=== PATIENT | female | born 2000 | race Caucasian/White ===

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

== ENCOUNTER → 2020-06-13 | Outpatient (CLI) | payer OTHER ==
[2020-06-13 14:53] LABS: Basophils % (A) 1 %; Eosinophils # (A) 0.1 k/uL (0-0.7); Eosinophils % (A) 2 %; HCT 38.1 % (34.0-46.0); Lymphocytes # (A) 1.5 k/uL (1.0-4.8); Lymphocytes % (A) 32 %; MCH 29.9 pg (25.0-35.0); MCHC 34.2 g/dL (31.0-37.0); MCV 87.2 fL (80.0-100.0); Mean Platelet Volume 7.3; Monocytes # (A) 0.2 k/uL (0-1.0); Monocytes % (A) 4 %; Neutrophils # (A) 2.9 k/uL (1.3-7.7); Neutrophils % (A) 60 %; Platelet Count 223 k/uL (150-450); RBC 4.37 m/uL (3.80-5.40); RDW 11.7 % (11.5-15.5); WBC 4.8 k/uL (4.0-11.0)
[2020-06-13 21:17] LABS: Albumin 4.6 g/dL (3.80-4.90); Albumin/Globulin Ratio 2.19 (1.60-3.17); Anion Gap 7.8 mmol/L (4.00-12.00); BUN/Creat Ratio 13.75 Ratio (12.00-20.00); Calcium 9.3 mg/dL (8.7-10.3); Carbon Dioxide 26.2 mmol/L (21.6-31.8); Chol/HDL Ratio 3.14; Globulin 2.1 g/dL (1.6-3.3); LDL Cholesterol,Calculated 79.2 mg/dL (0.0-131.0); Non-African American GFR(CKD) 106.1 (60.0-200.0); Potassium 4.2 mmol/L (3.5-5.5); Total Bilirubin 0.3 mg/dL (0.2-1.2); Total Protein 6.7 g/dL (6.2-8.2); VLDL Calculation 10.8 mg/dL (5.00-40.00)
[2020-06-13 21:56] LABS: Hepatitis A Antibody IgM Non-Reactive (Non-Reactive); Hepatitis B Core IgM Non-Reactive (Non-Reactive); Hepatitis B Surface Antigen Non-Reactive (Non-Reactive); Hepatitis C IgG Antibody Non-Reactive (Non-Reactive)
[2020-06-13 22:29] LABS: HIV 2 AB Non-Reactive (Non-Reactive); HIV AB P24 Non-Reactive (Non-Reactive); HIV P24 AG Non-Reactive (Non-Reactive)
== END | disposition home or self-care (01) ==
LOC: LABWHC1 13:48
PROVIDERS: ATTEND Physician Assistant
DX: Z00.00 Encounter for general adult medical examination without abnormal findings (principal); R42 Dizziness and giddiness
CPT/HCPCS: 36415; 80053; 80061; 80074; 82306; 83036; 84443; 85025; 87390; 93005

== ENCOUNTER → 2020-07-25 | Outpatient (CLI) | payer OTHER ==
[2020-07-26 01:41] LABS: Hepatitis A Ab, Total Reactive (Non-Reactive); Hepatitis B Surface AB- Quant 3.5 mIU/mL; Hepatitis B Surface Antibody Non-Reactive (Non-Reactive)
== END | disposition home or self-care (01) ==
LOC: LABWHC1 11:11
PROVIDERS: ATTEND Physician Assistant
DX: Z00.00 Encounter for general adult medical examination without abnormal findings (principal)
CPT/HCPCS: 36415; 86704; 86706; 86708

== ENCOUNTER 2020-09-10 | Emergency (ER) | payer OTHER ==
--- NOTE | 2020-09-10 23:08 | ED ---
Skin/Abscess/FB HPI - General Chief complaint: Skin/Abscess/Foreign Body Stated complaint: Poss bug bites Time Seen by Provider: 09/10/20 22:43 Source: patient Mode of arrival: ambulatory Limitations: no limitations - History of Present Illness Initial comments: Patient is a 20-year-old female presenting to the emergency Department with complaints of a rash. Patient states her boyfriend was here yesterday and was diagnosed with scabies. Patient states she noticed a few bumps starting today on her right forearm and the back of her neck and wants treatment for scabies as well. She denies any fevers or chills, no nausea or vomiting. She has no other complaints. - Related Data Home Medications Medication Instructions Recorded Confirmed Melatonin 3 mg PO HS PRN 10/04/15 02/05/19 Cholecalciferol [Vitamin D3] 1,000 unit PO DAILY 06/25/17 02/05/19 QUEtiapine [SEROquel] 25 mg PO HS 06/25/17 02/05/19 Sertraline [Zoloft] 100 mg PO DAILY 06/25/17 02/05/19 Previous Rx's Medication Instructions Recorded Famotidine [Pepcid] 20 mg PO DAILY #3 tablet 02/05/19 predniSONE 50 mg PO DAILY #3 tab 02/05/19 Permethrin 5% Cream [Elimite] 1 applic TOPICAL ONCE #60 gram 09/10/20 Allergies Allergy/AdvReac Type Severity Reaction Status Date / Time No Known Allergies Allergy Verified 09/10/20 21:35 Review of Systems ROS Statement: Those systems with pertinent positive or pertinent negative responses have been documented in the HPI. ROS Other: All systems not noted in ROS Statement are negative. Past Medical History Past Medical History: No Reported History History of Any Multi-Drug Resistant Organisms: None Reported Past Surgical History: No Surgical Hx Reported Past Psychological History: ADD/ADHD, Anxiety, Depression Smoking Status: Never smoker Past Alcohol Use History: None Reported Past Drug Use History: None Reported General Exam - General Exam Comments Initial Comments: GENERAL: Patient is well-developed and well-nourished. Patient is nontoxic and in no acute distress. HEAD: Atraumatic, normocephalic. EYES: Pupils equal round and reactive to light, extraocular movements intact, sclera anicteric, conjunctiva are normal. Eyelids were unremarkable. ENT: TMs normal, nares patent, oropharynx clear without exudates. Moist mucous m embranes. NECK: Normal range of motion, supple without lymphadenopathy or JVD. LUNGS: Unlabored respirations. Breath sounds clear to auscultation bilaterally and equal. No wheezes rales or rhonchi. HEART: Regular rate and rhythm without murmurs, rubs or gallops. ABDOMEN: Soft, nontender, normoactive bowel sounds. No guarding, no rebound. No masses appreciated. : Deferred MUSCULOSKELETAL: Normal extremities with adequate strength and normal range of motion, no pitting or edema. No clubbing or cyanosis. NEUROLOGICAL: Patient is alert and oriented x 3. Motor and sensory are also intact. Cranial nerves II through XII grossly intact. Symmetrical smile. Normal speech, normal gait. PSYCH: Normal mood, normal affect. SKIN: Warm, Dry, normal turgor, no rashes or lesions noted. Limitations: no limitations Course Vital Signs 09/10/20 09/10/20 21:30 23:10 Temperature 98.1 F Pulse Rate 100 70 Respiratory 18 16 Rate Blood Pressure 107/67 107/51 O2 Sat by Pulse 99 99 Oximetry Medical Decision Making - Medical Decision Making Patient is a 20-year-old female here requesting treatment for scabies as her boyfriend was treated yesterday for scabies and she noticed a few bumps today. On exam, I see no rash or bumps are consistent with scabies. Patient is really anxious about this, I will give her prescription for cream in case her rash gets worse or she noticed more symptoms. She can follow up with her regular doctor. Patient is stable for discharge and she is in agreement with this plan of care. Disposition Clinical Impression: Scabies exposure, Rash Disposition: HOME SELF-CARE Condition: Stable Instructions (If sedation given, give patient instructions): Normal Exam (ED) Additional Instructions: Please return to the Emergency Department if symptoms worsen or any other concerns. Use cream as prescribed. Follow-up with your primary care physician. Prescriptions: Permethrin 5% Cream [Elimite] 1 applic TOPICAL ONCE #60 gram Is patient prescribed a controlled substance at d/c from ED?: No Referrals: Aguilar Rodríguez PAC [Primary Care Provider] - 1-2 days
== END 2020-09-10 23:19 | disposition home or self-care (01) ==
CPT/HCPCS: 99282

== ENCOUNTER 2022-06-13 16:26 | Emergency (ER) | payer OTHER ==
[2022-06-13 16:35] VITALS: PULSE 68; RESP 18
[2022-06-13] MEDS ORDERED: SODIUM CHLORIDE 0.9% 1,000 ML IV STA (17:06)
--- NOTE | 2022-06-13 17:18 | ED ---
General Adult HPI - General Chief complaint: Syncope Stated complaint: Syncope Time Seen by Provider: 06/13/22 16:55 Source: patient, EMS, RN notes reviewed, old records reviewed Mode of arrival: EMS Limitations: no limitations - History of Present Illness Initial comments: Patient is a 22-year-old female who presents to the emergency department complai jacey of a syncopal episode while at work. This is the second syncopal episode in 2 years. Has had multiple near syncopal episodes as well. Uncertain what causes them. States that she was working while standing earlier, and felt like she was having tunnel vision with lightheadedness. Her coworker lowered her to the ground and she did not hit her head. She then passed out. Uncertain how long she was passed out for. States she came to on her own. When EMS arrived, they stated she had positive orthostatic vital signs. She states she ate a little bit this morning as well as drink a little bit. Did not previously have a significant workup. Presents for further evaluation of this time. No history of blood clots. Mild chest tightness which resolved. Denies shortness of breath. Denies abdominal pain, nausea, vomiting. Otherwise feels well. Presents emergency department for further evaluation at this time. Is not on blood thinners. Presents with her boyfriend who is also the room. - Related Data Home Medications Medication Instructions Recorded Confirmed Melatonin 3 mg PO HS PRN 10/04/15 02/05/19 Cholecalciferol [Vitamin D3] 1,000 unit PO DAILY 06/25/17 02/05/19 QUEtiapine [SEROquel] 25 mg PO HS 06/25/17 02/05/19 Sertraline [Zoloft] 100 mg PO DAILY 06/25/17 02/05/19 Previous Rx's Medication Instructions Recorded Famotidine [Pepcid] 20 mg PO DAILY #3 tablet 02/05/19 predniSONE 50 mg PO DAILY #3 tab 02/05/19 Permethrin 5% Cream [Elimite] 1 applic TOPICAL ONCE #60 gram 09/10/20 Allergies Allergy/AdvReac Type Severity Reaction Status Date / Time No Known Allergies Allergy Verified 09/10/20 21:35 Review of Systems ROS Statement: Those systems with pertinent positive or pertinent negative responses have been documented in the HPI. Review of Systems: CONST: Denies fever EYES: Denies blurry vision ENT: Denies nasal congestion C/V: Denies Chest pain RESP: Denies shortness of breath GI: Denies abdominal pain : Denies dysuria SKIN: Denies rash. MSK: Denies joint pain. NEURO: Denies headache ROS Other: All systems not noted in ROS Statement are negative. Past Medical History Past Medical History: No Reported History History of Any Multi-Drug Resistant Organisms: None Reported Past Surgical History: No Surgical Hx Reported Past Psychological History: ADD/ADHD, Anxiety, Depression Smoking Status: Never smoker Past Alcohol Use History: None Reported Past Drug Use History: None Reported General Exam - General Exam Comments Initial Comments: General: Appears in no acute distress. HEAD: Normal with no signs of head trauma. EYES: PERRLA, EOMI, conjunctiva normal, no discharge. Pupils are 3mm and equal bilaterally. ENT: Hearing grossly intact, normal oropharynx. RESPIRATORY: Clear breath sounds bilaterally. No wheezes, rales, or rhonchi. C/V: Regular rate and rhythm. S1 and S2 auscultated, no edema, peripheral pulses 2+ and intact throughout ABD: Abd is soft, nontender, nondistended EXT: Normal range of motion, no obvious deformity SKIN: No rashes or lesions observed on exposed skin. NEURO: Alert and oriented x 4. Cranial nerves II-XII intact. No focal sensory o r strength deficits. NIH is 0. GCS 15. Limitations: no limitations Course Vital Signs 06/13/22 06/13/22 16:31 17:40 Pulse Rate 68 Respiratory 18 18 Rate Blood Pressure 114/75 Blood Pressure 122/70 [Sitting] Blood Pressure 111/84 [Standing] Blood Pressure 120/71 [Supine] O2 Sat by Pulse 96 100 Oximetry Medical Decision Making - Medical Decision Making Was pt. sent in by a medical professional or institution (, PA, BELL TIER, urgent care, hospital, or long term...) When possible be specific @ -No Did you speak to anyone other than the patient for history (EMS, parent, family, police, friend...)? What history was obtained from this source @ -No Did you review nursing and triage notes (agree or disagree)? Why? @ -I reviewed and agree with nursing and triage notes Were old charts reviewed (outside hosp., previous admission, EMS record, old EKG, old radiological studies, urgent care reports/EKG's, long term records)? Report findings @ -Yes, i reveiwed old EKGs, charts. Differential Diagnosis (chest pain, altered mental status, abdominal pain women, abdominal pain men, vaginal bleeding, weakness, fever, dyspnea, syncope, headache, dizziness, GI bleed, back pain, seizure, CVA, palpatations, mental health)? @ -Differential Syncope: Valvular disease, hypertrophic cardiomyopathy, pulmonary embolism, tamponade, tachycardia, bradycardia, CO, hypovolemia, hemorrhage, dissection, anemia, intracranial hemorrhage, seizure, hypoglycemia, carbon monoxide poisoning, this is not meant to be an all-inclusive list. EKG interpreted by me (3pts min.). @ -As above X-rays interpreted by me (1pt min.). @ -Chest x-ray showed no acute cardio pulmonary process CT interpreted by me (1pt min.). @ -CT brain revealed no acute intracranial process, injury U/S interpreted by me (1pt. min.). @ -None done What testing was considered but not performed or refused? (CT, X-rays, U/S, labs )? Why? @ -None What meds were considered but not given or refused? Why? @ -None Did you discuss the management of the patient with other professionals (professionals i.e. , PA, BELL TIER, lab, RT, psych nurse, oncology social worker, baker doughnut, teacher, housing management officer, bottle caser)? Give summary @ -No Was smoking cessation discussed for >3mins.? @ -No Was critical care preformed (if so, how long)? @ -No Were there social determinants of health that impacted care today? How? (Homelessness, low income, unemployed, alcoholism, drug addiction, transportation, low edu. Level, literacy, decrease access to med. care, custodial, rehab)? @ -No Was there de-escalation of care discussed even if they declined (Discuss DNR or withdrawal of care, Hospice)? DNR status @ -No What co-morbidities impacted this encounter? (DM, HTN, Smoking, COPD, CAD, Cancer, CVA, ARF, Chemo, Hep., AIDS, mental health diagnosis, sleep apnea, morbid obesity)? @ -None Was patient admitted / discharged? Hospital course, mention meds given and route, prescriptions, significant lab abnormalities, going to OR and other pertinent info. @ - Based on the patient's presentation and physical exam, she expenses since the ep isode. Believe this is likely related to orthostatic hypotension as it was positive for EMS. She will receive an additional 1 L fluid bolus as she received 500 mL by EMS. However this is the second syncopal episode, with near syncopal episodes in between over the last few years. Never received a full workup. We did discuss her risk for potential causes such as brain anomaly or possible pulmonary embolism. She is low risk for these but we will obtain a CT brain as well as a screening d-dimer in addition to basic laboratory studies and EKG. She was in agreement this plan. Vital signs within acceptable limits. EKG was within normal limits. CT brain and chest x-ray showed no acute process or injury. Laboratory studies remarkable for d-dimer within normal limits. Patient is not . Remainder labs are within acceptable limits. On reevaluation following orthostatic vital signs are within normal limits. I discussed results with the patient. I believe it is safer to be discharged home. She is feeling improved. Ambulates without difficulty. She was in agreement this plan. Strict return precautions were discussed. I instructed the patient to follow up with their PCP in the next 1-3 days. I explained that the patient should return to the emergency department if they experience any worsening symptoms. Strict return precautions were discussed with the patient. The patient expressed understanding of these instructions. I answered all questions that the patient had. The patient was discharged home in good condition with their prescriptions and follow up information. Undiagnosed new problem with uncertain prognosis? @ -No Drug Therapy requiring intensive monitoring for toxicity (Heparin, Nitro, Insulin, Cardizem)? @ -No Were any procedures done? @ -No Diagnosis/symptom? @ -Syncope of unknown etiology Acute, or Chronic, or Acute on Chronic? @ -Acute Uncomplicated (without systemic symptoms) or Complicated (systemic symptoms)? @ -Uncomplicated Side effects of treatment? @ -No Exacerbation, Progression, or Severe Exacerbation? @ -No Poses a threat to life or bodily function? How? (Chest pain, USA, CO, pneumonia, PE, COPD, DKA, ARF, appy, cholecystitis, CVA, Diverticulitis, Homicidal, Suicidal, threat to staff... and all critical care pts) @ -No - Lab Data Result diagrams: 06/13/22 18:00 06/13/22 18:00 Lab Results 06/13/22 06/13/22 06/13/22 Range/Units 18:00 18:00 18:00 WBC 6.4 (3.8-10.6) k/uL RBC 4.19 (3.80-5.40) m/uL Hgb 12.0 (11.4-16.0) gm/dL Hct 36.0 (34.0-46.0) % MCV 86.0 (80.0-100.0) fL MCH 28.6 (25.0-35.0) pg MCHC 33.2 (31.0-37.0) g/dL RDW 12.9 (11.5-15.5) % Plt Count 235 (150-450) k/uL MPV 7.8 Neutrophils % 75 % Lymphocytes % 18 % Monocytes % 4 % Eosinophils % 1 % Basophils % 1 % Neutrophils # 4.8 (1.3-7.7) k/uL Lymphocytes # 1.2 (1.0-4.8) k/uL Monocytes # 0.2 (0-1.0) k/uL Eosinophils # 0.1 (0-0.7) k/uL Basophils # 0.0 (0-0.2) k/uL PT 10.5 (9.0-12.0) sec INR 1.0 (<1.2) APTT 21.1 L (22.0-30.0) sec D-Dimer 0.30 (<0.60) mg/L FEU Sodium 142 (137-145) mmol/L Potassium 4.1 (3.5-5.1) mmol/L Chloride 109 H (98-107) mmol/L Carbon Dioxide 26 (22-30) mmol/L Anion Gap 7 mmol/L BUN 13 (7-17) mg/dL Creatinine 0.59 (0.52-1.04) mg/dL Est GFR (CKD-EPI)AfAm >90 (>60 ml/min/1.73 sqM) Est GFR (CKD-EPI)NonAf >90 (>60 ml/min/1.73 sqM) Glucose 99 (74-99) mg/dL Calcium 8.8 (8.4-10.2) mg/dL Magnesium 2.3 (1.6-2.3) mg/dL Total Bilirubin 0.4 (0.2-1.3) mg/dL AST 18 (14-36) U/L ALT 16 (4-34) U/L Alkaline Phosphatase 42 (38-126) U/L Total Protein 7.5 (6.3-8.2) g/dL Albumin 4.6 (3.5-5.0) g/dL HCG, Qual Not Detected - EKG Data -: EKG Interpreted by Me EKG Comments: 12-lead Electrocardiogram Interpretation Note EKG was reviewed and interpreted by myself. 12-lead ECG performed at 1638 is interpreted by me as revealing normal sinus rhythm at a rate of 66 beats per minute. Holstein is normal. PA interval is 145 ms, QRS duration is 88 ms, QTc is 417 ms.. There were no ST or T wave abnormalities to suggest myocardial ischemia or injury. R wave progression across the precordium was satisfactory. By my interpretation this EKG is non-diagnostic for acute ischemia. No change when compared with EKG from 06/13/2020. Disposition Clinical Impression: Syncope Disposition: HOME SELF-CARE Condition: Good Instructions (If sedation given, give patient instructions): Syncope (ED) Is patient prescribed a controlled substance at d/c from ED?: No Referrals: None,Stated [Primary Care Provider] - 1-2 days Time of Disposition: 19:00
[2022-06-13 17:42] VITALS: BP 120/71
[2022-06-13 18:13] LABS: Basophils % (A) 1 %; Eosinophils # (A) 0.1 k/uL (0-0.7); Eosinophils % (A) 1 %; Lymphocytes # (A) 1.2 k/uL (1.0-4.8); Lymphocytes % (A) 18 %; MCH 28.6 pg (25.0-35.0); MCHC 33.2 g/dL (31.0-37.0); Mean Platelet Volume 7.8; Monocytes # (A) 0.2 k/uL (0-1.0); Monocytes % (A) 4 %; Neutrophils # (A) 4.8 k/uL (1.3-7.7); Neutrophils % (A) 75 %; Platelet Count 235 k/uL (150-450); RBC 4.19 m/uL (3.80-5.40); RDW 12.9 % (11.5-15.5); WBC 6.4 k/uL (3.8-10.6)
[2022-06-13 18:20] LABS: HCG,Qualitative Serum Not Detected
[2022-06-13 18:25] LABS: ALT 16 U/L (4-34); AST 18 U/L (14-36); African American GFR (CKD) >90 (>60 ml/min/1.73 sqM); Albumin 4.6 g/dL (3.5-5.0); Alkaline Phosphatase 42 U/L (38-126); Anion Gap 7 mmol/L; Blood Urea Nitrogen 13 mg/dL (7-17); Calcium 8.8 mg/dL (8.4-10.2); Carbon Dioxide 26 mmol/L (22-30); Chloride 109 mmol/L (98-107); Glucose 99 mg/dL (74-99); Magnesium 2.3 mg/dL (1.6-2.3); Non-African American GFR(CKD) >90 (>60 ml/min/1.73 sqM); Potassium 4.1 mmol/L (3.5-5.1); Sodium 142 mmol/L (137-145); Total Bilirubin 0.4 mg/dL (0.2-1.3); Total Protein 7.5 g/dL (6.3-8.2)
[2022-06-13 18:38] LABS: Partial Thromboplastin Time 21.1 sec (22.0-30.0); Prothrombin Time 10.5 sec (9.0-12.0)
--- NOTE | 2022-06-13 18:49 | CT ---
EXAMINATION TYPE: CT brain wo con DATE OF EXAM: 06/13/2022 COMPARISON: None HISTORY: Syncope. CT DLP: 1129.4 mGycm Automated exposure control for dose reduction was used. Images of the brain obtained with no contrast. Ventricles and sulci appear normal. There is no mass effect nor midline shift. No sign of intracrania l hemorrhage. Calvarium is intact. No evidence of cerebral edema. There is normal aeration of the mas toid sinuses. IMPRESSION: Normal unenhanced head CT scan.
--- NOTE | 2022-06-13 18:53 | XR ---
EXAMINATION TYPE: XR chest 2V DATE OF EXAM: 06/13/2022 COMPARISON: 06/25/2017 HISTORY: Syncope TECHNIQUE: FINDINGS: Heart is normal. Lungs are clear. Diaphragm is normal. Bony thorax appears normal there are chest leads. IMPRESSION: Normal chest. No change.
== END 2022-06-13 19:50 | disposition home or self-care (01) ==
LOC: EC 16:26
DX: R55 Syncope and collapse (principal); F32.A Depression, unspecified; F41.9 Anxiety disorder, unspecified
CPT/HCPCS: 36415; 70450; 71046; 80053; 83735; 84703; 85025; 85379; 85610; 85730; 93005; 96360; 99285

== ENCOUNTER 2022-08-16 23:09 | Emergency (ER) | payer OTHER ==
[2022-08-16 23:14] VITALS: RESP 16
--- NOTE | 2022-08-17 00:01 | ED ---
Allergic Reaction HPI - General Chief complaint: Allergic Reaction Stated complaint: allergic reaction Time Seen by Provider: 08/16/22 23:11 Source: patient, RN notes reviewed Mode of arrival: EMS Limitations: no limitations - History of Present Illness Initial Comments: Patient is a 22-year-old female presenting to the emergency room via EMS after having ALLERGIC reaction. She believes that she had an ALLERGIC reaction to raspberry flavored vodka however she had had several other alcoholic drinks and consumes food prior to the reaction as well. She denies regular alcohol consumption however does state that she was drinking yesterday as well and did not respond similarly to alcohol she drank yesterday. She reports that the reaction began after drinking a shot of breath raspberry vodka in which her hands the palmar aspects turned red and she began feeling facial/flushing and had redness develop throughout her entire face. EMS gave her 50 mg of Benadryl along with 125 mg of Solu-Medrol upon arrival her redness to the hands was resolved facial edema had improved and erythema is reducing. She denies any previous ALLERGIC reaction to any type of product including food, drink or medications. She denies any significant past medical history. - Related Data Home Medications Medication Instructions Recorded Confirmed Melatonin 3 mg PO HS PRN 10/04/15 02/05/19 Cholecalciferol [Vitamin D3] 1,000 unit PO DAILY 06/25/17 02/05/19 QUEtiapine [SEROquel] 25 mg PO HS 06/25/17 02/05/19 Sertraline [Zoloft] 100 mg PO DAILY 06/25/17 02/05/19 Previous Rx's Medication Instructions Recorded Famotidine [Pepcid] 20 mg PO DAILY #3 tablet 02/05/19 predniSONE 50 mg PO DAILY #3 tab 02/05/19 Permethrin 5% Cream [Elimite] 1 applic TOPICAL ONCE #60 gram 09/10/20 Allergies Allergy/AdvReac Type Severity Reaction Status Date / Time No Known Allergies Allergy Verified 09/10/20 21:35 Review of Systems ROS Statement: Those systems with pertinent positive or pertinent negative responses have been documented in the HPI. ROS Other: All systems not noted in ROS Statement are negative. Past Medical History Past Medical History: No Reported History History of Any Multi-Drug Resistant Organisms: None Reported Past Surgical History: No Surgical Hx Reported Past Psychological History: ADD/ADHD, Anxiety, Depression Smoking Status: Never smoker Past Alcohol Use History: Occasional Past Drug Use History: Marijuana General Exam - General Exam Comments Initial Comments: GENERAL: No acute distress, well developed, well nourished. Smells of alcohol. HEENT: Normocephalic, atraumatic. Pupils equal, round, reactive to light. Moist mucous membranes. Mild erythema in bilateral cheeks no overt hives. No facial edema, periorbital edema or pharyngeal injection/edema noted. LUNGS: No respiratory distress. Clear to auscultation, no adventitious sounds, no use of accessory muscles. HEART: Regular rate and rhythm without murmur, rub, or gallop. ABDOMEN: Normal bowel sounds. Soft, non-tender, non-distended. BACK: Normal inspection. EXTREMITIES: No edema. No tenderness. Moves all extremities. NEUROLOGIC: Alert & oriented x 3. CN II-XII grossly intact. PSYCHIATRIC: Normal affect and behavior. DERMATOLOGIC: Erythema near to bilateral cheeks without hives, otherwise skin intact no rash noted elsewhere. Limitations: no limitations Course Vital Signs 08/16/22 23:10 Temperature 98.2 F Pulse Rate 78 Respiratory 16 Rate Blood Pressure 110/82 O2 Sat by Pulse 99 Oximetry Medical Decision Making - Medical Decision Making Was pt. sent in by a medical professional or institution (JUDI Cruz, CLINICAL REHABILITATION LIAISON, urgent care, hospital, or long term...) When possible be specific @ -No Did you speak to anyone other than the patient for history (EMS, parent, family, police, friend...)? What history was obtained from this source @ -Boyfriend Did you review nursing and triage notes (agree or disagree)? Why? @ -I reviewed and agree with nursing and triage notes Were old charts reviewed (outside hosp., previous admission, EMS record, old EKG, old radiological studies, urgent care reports/EKG's, long term records)? Report findings @ -No old charts were reviewed Differential Diagnosis (chest pain, altered mental status, abdominal pain women, abdominal pain men, vaginal bleeding, weakness, fever, dyspnea, syncope, headache, dizziness, GI bleed, back pain, seizure, CVA, palpatations, mental health, musculoskeletal)? @ -not applicable EKG interpreted by me (3pts min.). @ -None done X-rays interpreted by me (1pt min.). @ -None done CT interpreted by me (1pt min.). @ -None done U/S interpreted by me (1pt. min.). @ -None done What testing was considered but not performed or refused? (CT, X-rays, U/S, labs)? Why? @ -None What meds were considered but not given or refused? Why? @ -None Did you discuss the management of the patient with other professionals (professionals i.e. , PA, CLINICAL REHABILITATION LIAISON, lab, RT, psych nurse, social work msw, metal stamping machine operator, teacher, chief sustainability officer, briefcase sewer)? Give summary @ -No Was smoking cessation discussed for >3mins.? @ -No Was critical care preformed (if so, how long)? @ -No Were there social determinants of health that impacted care today? How? (Homelessness, low income, unemployed, alcoholism, drug addiction, transportation, low edu. Level, literacy, decrease access to med. care, residential, rehab)? @ -No Was there de-escalation of care discussed even if they declined (Discuss DNR or withdrawal of care, Hospice)? DNR status @ -No What co-morbidities impacted this encounter? (DM, HTN, Smoking, COPD, CAD, Cancer, CVA, ARF, Chemo, Hep., AIDS, mental health diagnosis, sleep apnea, morbid obesity)? @ -None Was patient admitted / discharged? Hospital course, mention meds given and route, prescriptions, significant lab abnormalities, going to OR and other pertinent info. @ -22-year-old female presenting to the emergency room with complaints of facial swelling redness and redness to her hands after drinking raspberry vodka along with several other alcoholic drinks earlier today. She received 50 of Benadryl and 125 as a medical by EMS in symptoms however he began to resolve upon arrival to the emergency room. Mild facial rash without facial edema noted otherwise no abnormalities on exam. No indication for diagnostic imaging or laboratory studies. Will continue to monitor for one hour post administration of IV steroids to ensure no recurrence of facial edema and minimal plan for discharge home. Facial erythema completely resolved. No changes in airway status. Vital signs remained stable. No indication for further workup or monitoring. Questions and concerns answered. Return parameters to the emergency room discussed. Will discharge home in stable condition with avoidance of possible allergens which caused ALLERGIC reaction advising follow-up with primary care provider. Undiagnosed new problem with uncertain prognosis? @ -No Drug Therapy requiring intensive monitoring for toxicity (Heparin, Nitro, Insulin, Cardizem)? @ -No Were any procedures done? @ -No Diagnosis/symptom? @ -ALLERGIC reaction Acute, or Chronic, or Acute on Chronic? @ -Acute Uncomplicated (without systemic symptoms) or Complicated (systemic symptoms)? @ -Uncomplicated Side effects of treatment? @ -No Exacerbation, Progression, or Severe Exacerbation? @ -No Poses a threat to life or bodily function? How? (Chest pain, USA, MD, pneumonia, PE, COPD, DKA, ARF, appy, cholecystitis, CVA, Diverticulitis, Homicidal, Suicidal, threat to staff... and all critical care pts) @ -No Case discussed with Dr. Leal. Disposition Clinical Impression: Allergic reaction Disposition: HOME SELF-CARE Condition: Stable Instructions (If sedation given, give patient instructions): General Allergic Reaction (ED) Additional Instructions: May continue to use Benadryl as needed every 6 hours [id number] for rash/ALLERGY symptoms. Avoid products that may have caused symptoms. Please follow-up with your primary care provider. Please return to the Emergency Department if symptoms worsen or any other concerns. Is patient prescribed a controlled substance at d/c from ED?: No Referrals: None,Stated [Primary Care Provider] - 1-2 days Time of Disposition: 00:11
[2022-08-17 00:23] VITALS: BP 114/78; PULSE 76; TEMP 98.1
== END 2022-08-17 00:23 | disposition home or self-care (01) ==
LOC: EC 23:09
DX: T78.40XA Allergy, unspecified, initial encounter (principal); F32.A Depression, unspecified; F41.9 Anxiety disorder, unspecified; F12.90 Cannabis use, unspecified, uncomplicated; Z79.899 Other long term (current) drug therapy
CPT/HCPCS: 99284

== ENCOUNTER 2022-09-22 00:02 | Emergency (ER) | payer OTHER ==
[2022-09-22 00:10] VITALS: TEMP 97.9
[2022-09-22] MEDS ORDERED: SODIUM CHLORIDE 0.9% 1,000 ML IV ONE (00:15)
--- NOTE | 2022-09-22 00:38 | ED ---
General Adult HPI - General Chief complaint: Syncope Stated complaint: Syncope Time Seen by Provider: 09/22/22 00:09 Source: patient, EMS Mode of arrival: EMS Limitations: no limitations - History of Present Illness Initial comments: This is a 22-year-old female with no past medical history presents emergency department via EMS after syncopal episode. The patient stated that she was at work when she experienced flushing, lightheadedness and felt as if she was given a pass out so she lowered herself to the ground. The patient then was with a sonia ladd who witnessed that she did pass out momentarily. EMS was called and the patient had some minor lightheadedness transferring to the stretcher but otherwise stated that she was back to her baseline. The patient did state that this is happened previously but stated that she has never been worked up for her. The patient did state that she had decreased by mouth intake before going to work today. The patient denied any other acute pain or complaints at this time and denied any lightheadedness, dizziness as well as any fevers and chills. - Related Data Home Medications Medication Instructions Recorded Confirmed Melatonin 3 mg PO HS PRN 10/04/15 02/05/19 Cholecalciferol [Vitamin D3] 1,000 unit PO DAILY 06/25/17 02/05/19 QUEtiapine [SEROquel] 25 mg PO HS 06/25/17 02/05/19 Sertraline [Zoloft] 100 mg PO DAILY 06/25/17 02/05/19 Previous Rx's Medication Instructions Recorded Famotidine [Pepcid] 20 mg PO DAILY #3 tablet 02/05/19 predniSONE 50 mg PO DAILY #3 tab 02/05/19 Permethrin 5% Cream [Elimite] 1 applic TOPICAL ONCE #60 gram 09/10/20 Cephalexin [Keflex] 500 mg PO Q6HR 1 Days #20 cap 09/22/22 Allergies Allergy/AdvReac Type Severity Reaction Status Date / Time No Known Allergies Allergy Verified 09/10/20 21:35 Review of Systems ROS Statement: Those systems with pertinent positive or pertinent negative responses have been documented in the HPI. ROS Other: All systems not noted in ROS Statement are negative. Past Medical History Past Medical History: Syncope History of Any Multi-Drug Resistant Organisms: None Reported Past Surgical History: No Surgical Hx Reported Past Psychological History: ADD/ADHD, Anxiety, Depression Smoking Status: Never smoker Past Alcohol Use History: Occasional Past Drug Use History: Marijuana General Exam Limitations: no limitations General appearance: alert, in no apparent distress Head exam: Present: atraumatic, normocephalic, normal inspection Eye exam: Present: normal appearance, PERRL Pupils: Present: normal accommodation ENT exam: Present: normal exam, normal oropharynx, mucous membranes moist Neck exam: Present: normal inspection, full ROM Respiratory exam: Present: normal lung sounds bilaterally Cardiovascular Exam: Present: regular rate, normal rhythm, normal heart sounds GI/Abdominal exam: Present: soft, normal bowel sounds Extremities exam: Present: normal inspection, full ROM Back exam: Present: normal inspection, full ROM Neurological exam: Present: alert, oriented X3, CN II-XII intact Psychiatric exam: Present: normal affect, normal mood Skin exam: Present: warm, dry Course Vital Signs 09/22/22 09/22/22 09/22/22 00:04 00:20 00:49 Temperature 97.9 F Pulse Rate 66 84 Pulse Rate [ 69 Production Quality Analyst ] Respiratory 17 19 Rate Blood Pressure 99/65 111/73 O2 Sat by Pulse 100 100 Oximetry 09/22/22 09/22/22 09/22/22 01:00 01:15 01:30 Temperature Pulse Rate 69 61 Pulse Rate [ Production Quality Analyst ] Respiratory 18 16 Rate Blood Pressure 111/73 106/71 109/69 O2 Sat by Pulse 95 100 Oximetry 09/22/22 09/22/22 02:00 02:30 Temperature Pulse Rate 64 65 Pulse Rate [ Production Quality Analyst ] Respiratory 17 18 Rate Blood Pressure 104/70 104/61 O2 Sat by Pulse 100 100 Oximetry EKG Findings - EKG Comments: EKG Findings:: An EKG was obtained and was interpreted by myself showing a rate of 67, MD interval 149, QRS duration of 89 and QTC of 399. This EKG showed a normal sinus rhythm with no ST segment elevation or depression noted. Medical Decision Making - Medical Decision Making Was pt. sent in by a medical professional or institution (, PA, [employer] CERTIFIED INTERNETWORK EXPERT, urgent care, hospital, or care home...) When possible be specific @ -No Did you speak to anyone other than the patient for history (EMS, parent, family, police, friend...)? What history was obtained from this source @ -No Did you review nursing and triage notes (agree or disagree)? Why? @ -I reviewed and agree with nursing and triage notes Were old charts reviewed (outside hosp., previous admission, EMS record, old EKG, old radiological studies, urgent care reports/EKG's, care home records)? Report findings @ -No old charts were reviewed Differential Diagnosis (chest pain, altered mental status, abdominal pain women, abdominal pain men, vaginal bleeding, weakness, fever, dyspnea, syncope, headache, dizziness, GI bleed, back pain, seizure, CVA, palpatations, mental health)? @ -vasovagal syncope, ACS, UTI EKG interpreted by me (3pts min.). @ -As above X-rays interpreted by me (1pt min.). @ -Chest x-ray was obtained and was interpreted by myself showing no acute process. CT interpreted by me (1pt min.). @ -None done U/S interpreted by me (1pt. min.). @ -None done What testing was considered but not performed or refused? (CT, X-rays, U/S, labs)? Why? @ -None What meds were considered but not given or refused? Why? @ -None Did you discuss the management of the patient with other professionals (professionals i.e. , PA, [employer] C[employer]IED INTERNETWORK EXPERT, lab, RT, psych nurse, director social service, holter technician, teacher, artillery officer, case consultant)? Give summary @ -No Was smoking cessation discussed for >3mins.? @ -No Was critical care preformed (if so, how long)? @ -No Were there social determinants of health that impacted care today? How? (Homelessness, low income, unemployed, alcoholism, drug addiction, transportation, low edu. Level, literacy, decrease access to med. care, group home, rehab)? @ -No Was there de-escalation of care discussed even if they declined (Discuss DNR or withdrawal of care, Hospice)? DNR status @ -No What co-morbidities impacted this encounter? (DM, HTN, Smoking, COPD, CAD, Cancer, CVA, ARF, Chemo, Hep., AIDS, mental health diagnosis, sleep apnea, morbid obesity)? @ -None Was patient admitted / discharged? Hospital course, mention meds given and route, prescriptions, significant lab abnormalities, going to OR and other pertinent info. @ -The patient was seen and evaluated in the emergency department. Physical exam, the patient was resting in bed without any acute distress. Vital signs admission were stable. Laboratory workup was obtained and urinalysis did show a UTI. The patient was given a dose of Keflex in the emergency department. The patient on reevaluation stated that her symptoms are greatly improved and she likely had an episode of vasovagal syncope at work. The patient was advised to continue to hydrate and was given a prescription for Keflex to be taken at home. The patient was advised to follow-up with her primary care physician for further workup and evaluation and to report back to the emergency department if her pain became acutely worse. The patient was agreeable to this and all her questions were answered. The patient was discharged home in stable condition. Undiagnosed new problem with uncertain prognosis? @ -No Drug Therapy requiring intensive monitoring for toxicity (Heparin, Nitro, Insulin, Cardizem)? @ -No Were any procedures done? @ -No Diagnosis/symptom? @ -Vasovagal syncope, UTI Acute, or Chronic, or Acute on Chronic? @ -Acute Uncomplicated (without systemic symptoms) or Complicated (systemic symptoms)? @ -Uncomplicated Side effects of treatment? @ -No Exacerbation, Progression, or Severe Exacerbation? @ -No Poses a threat to life or bodily function? How? (Chest pain, [place], [place], pneumonia, PE, COPD, DKA, ARF, appy, cholecystitis, CVA, Diverticulitis, Homicidal, Suicidal, threat to staff... and all critical care pts) @ -No - Lab Data Result diagrams: 09/22/22 00:16 09/22/22 00:16 Lab Results 09/22/22 09/22/22 09/22/22 Range/Units 00:16 00:16 00:16 WBC 5.4 (3.8-10.6) k/uL RBC 4.06 (3.80-5.40) m/uL Hgb 12.0 (11.4-16.0) gm/dL Hct 36.2 (34.0-46.0) % MCV 89.3 (80.0-100.0) fL MCH 29.6 (25.0-35.0) pg MCHC 33.2 (31.0-37.0) g/dL RDW 12.3 (11.5-15.5) % Plt Count 220 (150-450) k/uL MPV 7.9 Neutrophils % 61 % Lymphocytes % 30 % Monocytes % 5 % Eosinophils % 2 % Basophils % 0 % Neutrophils # 3.3 (1.3-7.7) k/uL Lymphocytes # 1.6 (1.0-4.8) k/uL Monocytes # 0.3 (0-1.0) k/uL Eosinophils # 0.1 (0-0.7) k/uL Basophils # 0.0 (0-0.2) k/uL Sodium 140 (137-145) mmol/L Potassium 3.9 (3.5-5.1) mmol/L Chloride 107 (98-107) mmol/L Carbon Dioxide 25 (22-30) mmol/L Anion Gap 8 mmol/L BUN 10 (7-17) mg/dL Creatinine 0.63 (0.52-1.04) mg/dL Est GFR (CKD-EPI)AfAm >90 (>60 ml/min/1.73 sqM) Est GFR (CKD-EPI)NonAf >90 (>60 ml/min/1.73 sqM) Glucose 111 H (74-99) mg/dL Calcium 8.9 (8.4-10.2) mg/dL Magnesium 2.0 (1.6-2.3) mg/dL Total Bilirubin 0.4 (0.2-1.3) mg/dL AST 22 (14-36) U/L ALT 24 (4-34) U/L Alkaline Phosphatase 40 (38-126) U/L Troponin I <0.012 (0.000-0.034) ng/mL Total Protein 6.9 (6.3-8.2) g/dL Albumin 4.2 (3.5-5.0) g/dL Lipase 86 (23-300) U/L Urine Color Urine Appearance (Clear) Urine pH (5.0-8.0) Ur Specific [place] (1.001-1.035) Urine Protein (Negative) Urine Glucose (UA) (Negative) Urine Ketones (Negative) Urine Blood (Negative) Urine Nitrite (Negative) Urine Bilirubin (Negative) Urine Urobilinogen (<2.0) mg/dL Ur Leukocyte Esterase (Negative) Urine RBC (0-5) /hpf Urine WBC (0-5) /hpf Ur Squamous Epith Cells (0-4) /hpf Urine Bacteria (None) /hpf Urine Mucus (None) /hpf Urine HCG, Qual (Not Detectd) 09/22/22 09/22/22 Range/Units 01:18 01:18 WBC (3.8-10.6) k/uL RBC (3.80-5.40) m/uL Hgb (11.4-16.0) gm/dL Hct (34.0-46.0) % MCV (80.0-100.0) fL MCH (25.0-35.0) pg MCHC (31.0-37.0) g/dL RDW (11.5-15.5) % Plt Count (150-450) k/uL MPV Neutrophils % % Lymphocytes % % Monocytes % % Eosinophils % % Basophils % % Neutrophils # (1.3-7.7) k/uL Lymphocytes # (1.0-4.8) k/uL Monocytes # (0-1.0) k/uL Eosinophils # (0-0.7) k/uL Basophils # (0-0.2) k/uL Sodium (137-145) mmol/L Potassium (3.5-5.1) mmol/L Chloride (98-107) mmol/L Carbon Dioxide (22-30) mmol/L Anion Gap mmol/L BUN (7-17) mg/dL Creatinine (0.52-1.04) mg/dL Est GFR (CKD-EPI)AfAm (>60 ml/min/1.73 sqM) Est GFR (CKD-EPI)NonAf (>60 ml/min/1.73 sqM) Glucose (74-99) mg/dL Calcium (8.4-10.2) mg/dL Magnesium (1.6-2.3) mg/dL Total Bilirubin (0.2-1.3) mg/dL AST (14-36) U/L ALT (4-34) U/L Alkaline Phosphatase (38-126) U/L Troponin I (0.000-0.034) ng/mL Total Protein (6.3-8.2) g/dL Albumin (3.5-5.0) g/dL Lipase (23-300) U/L Urine Color Yellow Urine Appearance Cloudy H (Clear) Urine pH 5.5 (5.0-8.0) Ur Specific [place] 1.010 (1.001-1.035) Urine Protein Negative (Negative) Urine Glucose (UA) Negative (Negative) Urine Ketones Negative (Negative) Urine Blood Negative (Negative) Urine Nitrite Negative (Negative) Urine Bilirubin Negative (Negative) Urine Urobilinogen <2.0 (<2.0) mg/dL Ur Leukocyte Esterase Moderate H (Negative) Urine RBC 2 (0-5) /hpf Urine WBC 68 H (0-5) /hpf Ur Squamous Epith Cells 3 (0-4) /hpf Urine Bacteria Occasional H (None) /hpf Urine Mucus Moderate H (None) /hpf Urine HCG, Qual Not Detected (Not Detectd) Disposition Clinical Impression: Vasovagal syncope, UTI (urinary tract infection) Disposition: HOME SELF-CARE Condition: Stable Instructions (If sedation given, give patient instructions): Urinary Tract Infection in Women (DC), Syncope (DC) Prescriptions: Cephalexin [Keflex] 500 mg PO Q6HR 1 Days #20 cap Is patient prescribed a controlled substance at d/c from ED?: No Referrals: None,Stated [Primary Care Provider] - 1-2 days Time of Disposition: 02:30
--- NOTE | 2022-09-22 00:41 | XR ---
EXAM: XR Chest, 2 Views CLINICAL HISTORY: ITS.REASON XR Reason: CP TECHNIQUE: Frontal and lateral views of the chest. COMPARISON: XR Chest dated 06/13/22 FINDINGS: Lungs: Unremarkable. No consolidation. Pleural space: Unremarkable. No pneumothorax. Heart: Unremarkable. No cardiomegaly. Mediastinum: Unremarkable. Bones/joints: Unremarkable. IMPRESSION: No evidence of acute cardiopulmonary disease.
[2022-09-22 00:47] LABS: Basophils % (A) 0 %; Eosinophils # (A) 0.1 k/uL (0-0.7); Eosinophils % (A) 2 %; HCT 36.2 % (34.0-46.0); Lymphocytes # (A) 1.6 k/uL (1.0-4.8); Lymphocytes % (A) 30 %; MCH 29.6 pg (25.0-35.0); MCHC 33.2 g/dL (31.0-37.0); MCV 89.3 fL (80.0-100.0); Mean Platelet Volume 7.9; Monocytes # (A) 0.3 k/uL (0-1.0); Monocytes % (A) 5 %; Neutrophils # (A) 3.3 k/uL (1.3-7.7); Neutrophils % (A) 61 %; Platelet Count 220 k/uL (150-450); RBC 4.06 m/uL (3.80-5.40); RDW 12.3 % (11.5-15.5); WBC 5.4 k/uL (3.8-10.6)
[2022-09-22 00:59] LABS: ALT 24 U/L (4-34); AST 22 U/L (14-36); African American GFR (CKD) >90 (>60 ml/min/1.73 sqM); Albumin 4.2 g/dL (3.5-5.0); Alkaline Phosphatase 40 U/L (38-126); Anion Gap 8 mmol/L; Blood Urea Nitrogen 10 mg/dL (7-17); Calcium 8.9 mg/dL (8.4-10.2); Carbon Dioxide 25 mmol/L (22-30); Chloride 107 mmol/L (98-107); Glucose 111 mg/dL (74-99); Lipase 86 U/L (23-300); Non-African American GFR(CKD) >90 (>60 ml/min/1.73 sqM); Potassium 3.9 mmol/L (3.5-5.1); Sodium 140 mmol/L (137-145); Total Bilirubin 0.4 mg/dL (0.2-1.3); Total Protein 6.9 g/dL (6.3-8.2)
[2022-09-22 02:28] LABS: Appearance,Urine Cloudy (Clear); Bacteria,Urine Occasional /hpf; Bilirubin,Urine Negative (Negative); Blood,Urine Negative (Negative); Color,Urine Yellow; Glucose,Urine (UA) Negative (Negative); Ketones,Urine Negative (Negative); Leukocyte Esterase,Urine Moderate (Negative); Mucus,Urine Moderate /hpf; Nitrite,Urine Negative (Negative); PH, Urine 5.5 (5.0-8.0); Protein,Urine Negative (Negative); RBC,Urine 2 /hpf (0-5); Squamous Epithelial Cell,Urine 3 /hpf (0-4); Urobilinogen,Urine <2.0 mg/dL (<2.0); WBC,Urine 68 /hpf (0-5)
[2022-09-22] MEDS ORDERED: CEPHALEXIN 500 MG CAP PO STA (02:32)
[2022-09-22 02:35] VITALS: BP 104/61; PULSE 65; RESP 18
== END 2022-09-22 02:40 | disposition home or self-care (01) ==
LOC: EC 00:02
DX: R55 Syncope and collapse (principal); N39.0 Urinary tract infection, site not specified; F32.A Depression, unspecified; F41.9 Anxiety disorder, unspecified; F12.90 Cannabis use, unspecified, uncomplicated; Z79.899 Other long term (current) drug therapy
CPT/HCPCS: 36415; 71046; 80053; 81001; 81025; 83690; 83735; 84484; 85025; 93005; 96360; 99284

== ENCOUNTER 2023-05-13 04:15 | Emergency (ER) | payer OTHER ==
[2023-05-13 04:45] VITALS: BP 101/60; PULSE 96; RESP 16; TEMP 98.6
--- NOTE | 2023-05-13 05:37 | ED ---
General Adult HPI - General Chief complaint: ENT Stated complaint: Sore Throat Time Seen by Provider: 05/13/23 04:17 Source: patient, RN notes reviewed, old records reviewed Mode of arrival: ambulatory Limitations: no limitations - History of Present Illness Initial comments: 23-year-old female presenting with a one-day history of sore throat. Patient states she is otherwise healthy. She denies fever. She has had a very mild cough. She takes no daily medications. No vomiting. No diarrhea. - Related Data Home Medications Medication Instructions Recorded Confirmed Melatonin 3 mg PO HS PRN 10/04/15 02/05/19 Cholecalciferol [Vitamin D3] 1,000 unit PO DAILY 06/25/17 02/05/19 QUEtiapine [SEROquel] 25 mg PO HS 06/25/17 02/05/19 Sertraline [Zoloft] 100 mg PO DAILY 06/25/17 02/05/19 Previous Rx's Medication Instructions Recorded Famotidine [Pepcid] 20 mg PO DAILY #3 tablet 02/05/19 predniSONE 50 mg PO DAILY #3 tab 02/05/19 Permethrin 5% Cream [Elimite] 1 applic TOPICAL ONCE #60 gram 09/10/20 Cephalexin [Keflex] 500 mg PO Q6HR 1 Days #20 cap 09/22/22 Ibuprofen [Motrin] 600 mg PO Q8HR PRN #24 tab 05/13/23 Allergies Allergy/AdvReac Type Severity Reaction Status Date / Time No Known Allergies Allergy Verified 05/13/23 04:25 Review of Systems ROS Statement: Those systems with pertinent positive or pertinent negative responses have been documented in the HPI. ROS Other: All systems not noted in ROS Statement are negative. Past Medical History Past Medical History: Syncope History of Any Multi-Drug Resistant Organisms: None Reported Past Surgical History: No Surgical Hx Reported Past Psychological History: ADD/ADHD, Anxiety, Depression Smoking Status: Vaper Past Alcohol Use History: Occasional Past Drug Use History: Marijuana General Exam Limitations: no limitations General appearance: alert, in no apparent distress Head exam: Present: atraumatic, normocephalic Eye exam: Present: normal appearance, PERRL ENT exam: Present: mucous membranes moist. Absent: normal oropharynx (Pharyngeal erythema without tonsillar swelling or exudate) Respiratory exam: Present: normal lung sounds bilaterally. Absent: respiratory distress, wheezes Cardiovascular Exam: Present: regular rate, normal rhythm GI/Abdominal exam: Present: soft. Absent: distended, tenderness, guarding Neurological exam: Present: alert, oriented X3, CN II-XII intact, normal gait. Absent: motor sensory deficit Psychiatric exam: Present: normal affect, normal mood Skin exam: Present: warm, dry, intact Course Vital Signs 05/13/23 04:22 Temperature 98.6 F Pulse Rate 96 Respiratory 16 Rate Blood Pressure 101/60 O2 Sat by Pulse 99 Oximetry Medical Decision Making - Medical Decision Making Was pt. sent in by a medical professional or institution (, JUDI, IRON POURER, urgent care, hospital, or snf...) When possible be specific @ -No Did you speak to anyone other than the patient for history (EMS, parent, family, police, friend...)? What history was obtained from this source @ -No Did you review nursing and triage notes (agree or disagree)? Why? @ -I reviewed and agree with nursing and triage notes Were old charts reviewed (outside hosp., previous admission, EMS record, old EKG, old radiological studies, urgent care reports/EKG's, snf records)? Report findings @ -No old charts were reviewed Differential Diagnosis (chest pain, altered mental status, abdominal pain women, abdominal pain men, vaginal bleeding, weakness, fever, dyspnea, syncope, headache, dizziness, GI bleed, back pain, seizure, CVA, palpatations, mental health, musculoskeletal)? @ -Pharyngitis, viral URI, peritonsillar abscess EKG interpreted by me (3pts min.). @ -As above X-rays interpreted by me (1pt min.). @ -None done CT interpreted by me (1pt min.). @ -None done U/S interpreted by me (1pt. min.). @ -None done What testing was considered but not performed or refused? (CT, X-rays, U/S, labs)? Why? @ -None What meds were considered but not given or refused? Why? @ -None Did you discuss the management of the patient with other professionals (professionals i.e. JUDI Cruz, IRON POURER, lab, RT, psych nurse, drug abuse social worker, senior web applications developer, teacher, health officer, lining caser)? Give summary @ -No Was smoking cessation discussed for >3mins.? @ -No Was critical care preformed (if so, how long)? @ -No Were there social determinants of health that impacted care today? How? (Homelessness, low income, unemployed, alcoholism, drug addiction, transportation, low edu. Level, literacy, decrease access to med. care, shelter, rehab)? @ -No Was there de-escalation of care discussed even if they declined (Discuss DNR or withdrawal of care, Hospice)? DNR status @ -No What co-morbidities impacted this encounter? (DM, HTN, Smoking, COPD, CAD, Cancer, CVA, ARF, Chemo, Hep., AIDS, mental health diagnosis, sleep apnea, morbid obesity)? @ -None Was patient admitted / discharged? Hospital course, mention meds given and rout e, prescriptions, significant lab abnormalities, going to OR and other pertinent info. @ -[23-year-old female with a one-day history of sore throat. Patient has pharyngeal erythema without tonsillar swelling or exudate. No signs of peritonsillar abscess. Patient is afebrile. Likely viral pharyngitis. Patient will monitor symptoms and follow with her primary care provider. She's given Motrin for symptom control. Undiagnosed new problem with uncertain prognosis? @ -No Drug Therapy requiring intensive monitoring for toxicity (Heparin, Nitro, Insulin, Cardizem)? @ -No Were any procedures done? @ -No Diagnosis/symptom? @ -Pharyngitis Acute, or Chronic, or Acute on Chronic? @ -Acute Uncomplicated (without systemic symptoms) or Complicated (systemic symptoms)? @ -default Side effects of treatment? @ -No Exacerbation, Progression, or Severe Exacerbation? @ -No Poses a threat to life or bodily function? How? (Chest pain, [place], [place], pneumonia, PE, COPD, DKA, ARF, appy, cholecystitis, CVA, Diverticulitis, Homicidal, Suicidal, threat to staff... and all critical care pts) @ -[Low risk at this time - Lab Data Lab Results 05/13/23 Range/Units 04:27 Group A Strep (PCR) NOT DETECTED (Not Detectd) Disposition Clinical Impression: Acute viral pharyngitis Disposition: HOME SELF-CARE Condition: Fair Instructions (If sedation given, give patient instructions): Pharyngitis (ED) Additional Instructions: Please drink plenty of fluids. Use Tylenol and Motrin for pain control. If symptoms were to worsen please return to the emergency department. Prescriptions: Ibuprofen [Motrin] 600 mg PO Q8HR PRN #24 tab PRN Reason: Pain Is patient prescribed a controlled substance at d/c from ED?: No Referrals: None,Stated [Primary Care Provider] - 1-2 days Time of Disposition: 05:36
== END 2023-05-13 05:53 | disposition home or self-care (01) ==
LOC: EC 04:15
DX: J02.8 Acute pharyngitis due to other specified organisms (principal); F90.9 Attention-deficit hyperactivity disorder, unspecified type; F41.9 Anxiety disorder, unspecified; F32.A Depression, unspecified; F17.290 Nicotine dependence, other tobacco product, uncomplicated; F12.90 Cannabis use, unspecified, uncomplicated; Z79.899 Other long term (current) drug therapy
CPT/HCPCS: 87651; 99283

== ENCOUNTER → 2024-12-12 | Outpatient (CLI) | payer OTHER ==
--- NOTE | 2024-12-12 09:11 | MR ---
EXAMINATION TYPE: MR brain wo con DATE OF EXAM: 12/12/2024 6:44 AM COMPARISON: CT 06/13/2022 CLINICAL INDICATION: Female, 24 years old with history of H53.9 VISUAL DISTURBANCE R51.9 HEADACHE, He adaches. TECHNIQUE: Multiplanar, multisequence images of the brain and brainstem were acquired without IV con trast. Diffusion weighted imaging is performed. FINDINGS: No evidence for acute infarction, hemorrhage, mass, mass effect, midline shift, herniation, effacemen t of basal cisterns, or extra-axial fluid collection. The ventricles and sulci are age-appropriate. Major intracranial flow voids are intact. T2/FLAIR weighted sequences show no white matter signal abnormality. Midline structures demonstrate normal morphology. The craniocervical junction is normal. Small 7 mm mucosal retention cyst along the anterior floor of the left maxillary sinus. Scattered tra ce mucosal thickening ethmoid air cells with an additional 6 mm mucosal retention cyst posterior left ethmoid air cells. Globes are intact. IMPRESSION: No intracranial abnormality seen. Mild chronic ethmoid and left maxillary sinus disease.. [facility], , 12/12/2024 9:09 AM
== END | disposition home or self-care (01) ==
LOC: RADMRIMAIN 06:11
PROVIDERS: ATTEND Family Medicine
DX: H53.9 Unspecified visual disturbance (principal); J32.0 Chronic maxillary sinusitis
CPT/HCPCS: 70551